=== PATIENT | male | born 1985 | race Caucasian/White ===

== ENCOUNTER 2018-03-20 14:33 | Emergency (ER) | payer SELFPAY ==
--- NOTE | 2018-03-20 15:33 | EDPHY ---
H & P Time Seen by Provider: 03/20/18 14:54 HPI/ROS: CHIEF COMPLAINT: Anxiety HISTORY OF PRESENT ILLNESS: 32-year-old male presents to the emergency department with symptoms of anxiety. The patient states that he was drinking very heavily over 1 month ago and then started drinking again. He sought treatment and used a single dose of 25 mg of naltrexone on Tuesday, 3 days ago. He states today he felt extremely anxious and was feeling like he was having a panic attack. He had very similar symptoms when he was drinking heavily a few years ago. He denies shortness of breath. Currently he does not have any pain in his chest. He denies any other substance abuse. Denies headache. No reported trauma. REVIEW OF SYSTEMS: Constitutional: No fever, no chills. Eyes: No double or blurry vision. ENT: No sore throat. Respiratory: No cough, no shortness of breath. Cardiac: No chest pain. Gastrointestinal: No abdominal pain, vomiting or diarrhea. Genitourinary: No dysuria. Musculoskeletal: No neck or back pain. Skin: No rashes. Neurological: No headache. Past Medical/Surgical History: Alcohol abuse, anxiety Social History: Single Smoking Status: Never smoked Physical Exam: General Appearance: Alert, no distress. 146/100, heart rate 80 Eyes: Pupils equal and round. Extraocular motions are all intact. ENT: Mouth: Mucous membranes moist. Respiratory: No wheezing, rhonchi, or rales, lungs are clear to auscultation. Cardiovascular: Regular rate and rhythm. Gastrointestinal: Abdomen is soft and nontender, no masses, no rebound or guarding, bowel sounds normal. Neurological: Alert and oriented x 3, cranial nerves II through XII grossly intact Skin: Warm and dry, no rashes. Musculoskeletal: Nontender to palpate along the cervical, thoracic or lumbar spine. Neck is supple. Extremities: Full range of motion and no peripheral edema. Psychiatric: Patient is oriented X 3, there is no agitation. Constitutional: Initial Vital Signs Temperature (C) 36.9 C 03/20/18 14:37 Heart Rate 94 03/20/18 14:37 Respiratory Rate 16 03/20/18 14:37 Blood Pressure 153/108 H 03/20/18 14:37 O2 Sat (%) 95 03/20/18 14:37 O2 Delivery Mode Room Air Allergies/Adverse Reactions: egg [eggs] Allergy (Verified 03/20/18 14:36) Penicillins Allergy (Verified 03/20/18 14:36) Home Medications: Medication Instructions Recorded Caffine 03/20/18 Naltrexone 03/20/18 Medical Decision Making ED Course/Re-evaluation: 32-year-old male presents to the emergency department feeling anxious although his symptoms have improved. The patient declined an EKG. He declined any medication or by laboratory testing. The patient feels comfortable being discharged home. He was given resources for the addiction recovery Center as well as primary care provider worksite wellness practitioner. He was instructed to return to the emergency department if his symptoms changed or worsened. The patient did have elevated blood pressure in the emergency department, most recently 146/100. I encouraged him to had establish care with primary care provider to have this rechecked. Departure - Departure Disposition: Home, Routine, Self-Care Clinical Impression: Anxiety Condition: Good Instructions: Anxiety (ED) Additional Instructions: You declined medication and laboratory testing and EKG in the emergency department. Please return to the emergency department if you develop recurring symptoms of panic, or if you feel worse in any way. Referrals: [facility] [Outside] - As per Instructions Darby Mann MD [Medical Doctor] - As per Instructions (Primary care provider worksite wellness practitioner)
[2018-03-20 15:50] VITALS: BP 153/97
== END 2018-03-20 15:49 | disposition home or self-care (01) ==
DX: F41.9 Anxiety disorder, unspecified (principal)

== ENCOUNTER 2018-03-24 09:33 | Emergency (ER) | payer SELFPAY ==
--- NOTE | 2018-03-24 10:12 | EDPHY ---
HPI/HX/ROS/PE/MDM Narrative: CHIEF COMPLAINT: Alcohol withdrawal, requesting anti-anxiety medication HPI: The patient is a 32 y/o male with a history of alcohol abuse requesting anti-anxiety medication for withdrawal symptoms. His last alcohol intake was 6 days ago and he's had withdrawal symptoms throughout the week. He was in the ED 4 days ago for these symptoms and declined treatment and was encouraged to establish care with a PCP. This morning his anxiety worsened and he felt shaky with associated chest pain and after reading about alcohol withdrawal online he decided to go to the [facility] detox center to request medication to help with symptoms. When he arrived there he was informed they are unable to admit him to their facility because he is not acutely withdrawing and they do not prescribe any medication. He was advised to go to his PCP, but came here because he has not established care with a PCP. He is specifically and repeatedly requesting anti-anxiety medication. REVIEW OF SYSTEMS: Aside from elements discussed in the HPI, a comprehensive 10-point review of systems was reviewed and is negative. PMH: Alcoholism, anxiety Prior medical records reviewed including ED visit 03/20/18 for similar symptoms. SOCIAL HISTORY: Originally from [place]. Flight scheduled to go to [place] tomorrow for work prospect. PHYSICAL EXAM: General:Patient is alert, in no acute distress. ENT:Eyes are normal to inspection. ENT inspection normal. Neck: Normal inspection. Full range of motion. Respiratory:No respiratory distress. Breath sounds normal bilaterally. Cardiovascular: Regular rate and rhythm. Strong peripheral pulses. Normal cap refill. Abdomen:The abdomen is nontender to palpation. There are no peritoneal signs. Back: Normal to inspection. No tenderness to palpation. Skin: Normal color. No rash. Warm and dry. Extremities: Normal appearance. Full range of motion. Neuro: Oriented x3. Normal motor function. Normal sensory function. ED Course: This is a 32 y/o male with a history of alcohol abuse who presents 6 days after his last alcohol intake requesting anti-anxiety medication for anxiety. He is not in acute alcohol withdrawal on exam here. I informed him that we do not prescribe benzodiazepines in this situation and he would need to follow up with a PCP to discuss options for treating his anxiety and alcohol abuse. He complains of associated chest pain and consents to an EKG to evaluate this. No cardiac disease history or known risk factors. General Time Seen by Provider: 03/24/18 09:59 Initial Vital Signs: Initial Vital Signs Temperature (C) 36.6 C 03/24/18 09:36 Heart Rate 76 03/24/18 09:36 Respiratory Rate 18 03/24/18 09:36 O2 Sat (%) 95 03/24/18 09:36 O2 Delivery Mode Room Air Allergies/Adverse Reactions: egg [eggs] Allergy (Verified 03/24/18 09:39) Penicillins Allergy (Verified 03/24/18 09:39) Home Medications: Medication Instructions Recorded Caffine 03/20/18 Naltrexone 03/20/18 Departure - Departure Disposition: Home, Routine, Self-Care Clinical Impression: Alcohol abuse Condition: Good Instructions: Abuse of Alcohol (ED) Additional Instructions: Avoid abuse of alcohol. Follow up with a primary care physician to establish care. Return for worsening of condition. Referrals: [facility],. [Clinic] - As per Instructions Report Scribed for: Gulshan Blanc Report Scribed by: Vandana Renner Date of Report: 03/24/18 Time of Report: 10:12 Physician Review and Approval Statement: Portions of this note were transcribed by an ED scribe. I personally performed the history, physical exam, and medical decision making; and confirm the accuracy of the information in the transcribed note.
--- NOTE | 2018-03-24 10:13 | CPEKG ---
Heart Rate: 66 RR Interval: 909 P-R Interval: 180 QRSD Interval: 94 QT Interval: 380 QTC Interval: 399 P Sheridan: 41 QRS Sheridan: 67 T Wave Sheridan: 43 EKG Severity - NORMAL ECG - EKG Impression: SINUS RHYTHM Electronically Signed By: Evgeny Morgan 26-Mar-2018 09:11:22
[2018-03-24 10:35] VITALS: BP 154/99
--- NOTE | 2018-03-24 10:58 | ASMTCMCOM ---
CM Note CM Note Notes: 03/24/2018 Case Management Note Met w/pt. Pt requested appointment for medication specific to decreasing anxiety from alcohol withdrawl. Last drink was over 7 days ago. 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 Appointment sent for [facility] at 12:[address] Anai Stuart. Provided address. Pt to [employer] or use the bus. Case Management d/c poc: to [facility] for follow. Date Signed: 03/24/2018 10:57 AM Electronically Signed By:Cristal Lara RN
--- NOTE | 2018-03-24 10:59 | ASDISCHSUM ---
Discharge Information Plan Status:Home with No Needs Medically Cleared to Leave:03/24/2018 Discharge Date:03/24/2018 10:35 AM CM D/C Disposition:Home, Routine, Self-Care ADT D/C Disposition:Home, Routine, Self-Care Projected Discharge Date:03/24/2018 10:35 AM Transportation at D/C:Self Discharge Delay Reason: Follow-Up Date:03/24/2018 10:35 AM Discharge Slot: Final Diagnosis: Placement Information Patient Contact Information Contact Name:LNYEne Relationship: Address: Home Phone: Work Phone: City: Alternate Phone: State/[place] Code: Email: Financial Information Financial Class:Self-Pay Primary Plan Desc:SELF PAY Primary Plan Number: Secondary Plan Desc: Secondary Plan Number: Assessment Information [facility] CM Progress Note CM Note CM Note Notes: 03/24/2018 Case Management Note Met w/pt. Pt requested appointment for medication specific to decreasing anxiety from alcohol withdrawl. Last drink was over 7 days ago. 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 Appointment sent for [facility] at 12:[address] Anai Stuart. Provided address. Pt to [employer] or use the bus. Case Management d/c poc: to [facility] for follow. Date Signed: 03/24/2018 10:57 AM Electronically Signed By:Cristal Lara RN Intervention Information Intervention Type:Psychosocial Counseling Date of Service:03/24/2018 10:57 AM Patient Type:Emergency Room Staff Member:KATY Lara Hillary Hours: Discipline: Severity: Comment:Discussed d/c needs and arranged appoi ntment at [facility] for assessment of pt stated anxiety.
--- NOTE | 2018-03-24 11:01 | ASMTLACE ---
LACE Length of stay for Answers: Less than 1 day current admission Acuity / Level of Answers: No Care: Did the patient have an inpatient admission? # of Emergency department Answers: 1-2 visits in the last 6 months Social determinants Answers: History of substance abuse (ETOH, street drugs, prescription drugs, etc.) Mental health diagnosis (anxiety, depression, pers onality disorders, etc.) Score: 7 Date Signed: 03/24/2018 11:00 AM Electronically Signed By:Cristal Lara RN
== END 2018-03-24 10:35 | disposition home or self-care (01) ==
DX: F10.129 Alcohol abuse with intoxication, unspecified (principal)